=== PATIENT | female | born 1945 | race Caucasian/White ===

== ENCOUNTER 2018-11-08 06:58 | Day surgery (SDC) | payer MEDICARE, MEDICAID ==
[2018-11-08] VITALS (8 sets, daily range): BP systolic 96–123; BP diastolic 55–78
[~2018-11-08] VITALS: Ht 167.6 cm; Wt 80.3 kg
[~2018-11-08 06:58] MED LIST: BENICAR40 MG ORAL; CLARITIN10 M2 ORAL; CREON DR 12,001 EACH PO; LEXAPRO10 MG ORAL; NEXIUM40 MG ORAL; PROPRANOLOL HCL10 MG ORAL; VASCEPA1 GM PO
[2018-11-08] MEDS ORDERED: LR 1000ml 1,000 ML IVLG SCH ×2 (07:00→07:07)
--- NOTE | 2018-11-08 07:12 | Anethesia Preoperative Eval ---
Anesthesia Pre-op PMH/ROS General Date of Evaluation: Nov 08, 2018 Time of Evaluation: 07:08 Anesthesiologist: bee ASA Score: ASA 3 Mallampati Score Class I : Soft palate, uvula, fauces, pillars visible Class II: Soft palate, uvula, fauces visible Class III: Soft palate, base of uvula visible Class IV: Only hard plate visible Mallampati Classification: Class II Surgeon: jarrell Diagnosis: abdominal pain, gerd Surgical Procedure: egd/colonoscopy Anesthesia History: none Social History: smoking - nonsmoker Family History: no anesthesia problems Allergies: Coded Allergies: IBUPROFEN (Verified Allergy, Severe, rashes, redness, sneezing, 11/08/18) Medications: see eMAR Patient NPO?: Yes Past Medical History Cardiovascular: Reports: HTN, other - hyperlipidemia, hypercholesterolemia Gastrointestinal/Genitourinary: Reports: GERD, other - diverticulosis, colon polyps, hemorrhoids, bladder sx, cholecystectomy Musculoskeletal/Integumentary: Reports: other - orthrosis, PSxH Narrative: bunionectomy, cholecystectomy, bladder sx Anesthesia Pre-op Phys. Exam Physician Exam Constitutional: NAD Neurologic: CN 2-12 intact Cardiovascular: RRR Respiratory: CTA Gastrointestinal: S/NT/ND Airway Exam Mallampati Score: Class II MO: limited Neck: flexible TMD: 2fb ROM: limited Anesthesia Pre-op A/P Risk Assessment & Plan Assessment: asa3 Plan: mac Status Change Before Surgery: No Pre-Antibiotics Drug: Willa Patterson MD Nov 08, 2018 07:12
[2018-11-08] MEDS ORDERED: DiphenhydrAMINE 50mg/ml Inj IVP PRN (07:15)
[2018-11-08] MEDS ORDERED: Midazolam 2mg/2ml Inj IVP PRN (07:15)
[2018-11-08] MEDS ORDERED: Atropine Inj 1mg/10ml Syr IV PRN (07:15)
[2018-11-08] MEDS ORDERED: fentaNYL 100 mcg/2 mL IV PRN (07:15)
--- NOTE | 2018-11-08 07:27 | Short Stay Surgery H&P ---
History of Present Illness History of Present Illness Chief Complaint History of colon polyp anad GERDS/abdominal pains HPI Chante Aguilera is a 73 year old female who was admitted on for Abdominal Pain /Gerd/colon polyps for screening Patient History Allergies: Coded Allergies: IBUPROFEN (Verified Allergy, Mild, 11/28/11) PAST MEDICAL HISTORY: (1) Arthritis (2) Hyperlipidemia (3) Hypertension affecting (4) Renal stone Medication History Scheduled Escitalopram Oxalate* (Lexapro*), 10 MG ORAL DAILY, (Reported) Esomeprazole Magnesium (Nexium), 40 MG ORAL DAILY, (Reported) Icosapent Ethyl (Vascepa), 1 GM PO DAILY, (Reported) Lipase/Protease/Amylase (Creon Dr 12,000 Units Capsule), 1 EACH PO DAILY, ( Reported) Loratadine (Claritin), 10 MG ORAL DAILY, (Reported) Olmesartan Medoxomil (Benicar), 40 MG ORAL DAILY, (Reported) Propranolol Hcl* (Inderal*), 10 MG ORAL DAILY, (Reported) Review of Systems Cardiovascular: Reports: no symptoms, hypertension Respiratory: Reports: no symptoms Skeletal: Reports: no symptoms Gastrointestinal: Reports: gastro esophageal reflux disease Genitourinary: Reports: no symptoms Neurologic: Reports: no symptoms Endocrine: Reports: no symptoms Hematologic: Reports: no symptoms Physical Exam Skin: normal HENT: normal Heart: normal Lungs: normal Abdomen: normal Extremities: normal Genitourinary: normal Plan Plan of Care Upper and lower GI endoscopies Preop Interventions None. Summary of Findings See the final reports Attestation Are the patient's medical conditions optimized for surgery? Attestation Response: yes Juju Berman MD Nov 08, 2018 07:27
--- NOTE | 2018-11-08 07:29 | Pre-Procedure Note/Attestation ---
Pre-Procedure Note/Attestation Complete Prior to Procedure Planned Procedure: left Procedure Narrative: Examination of the upper and the lower GI tract via endoscopy Indications for Procedure Pre-Operative Diagnosis: R/O peptic ulcer/gastritis/Canales's esophagus/colon polyps Attestation I attest that I discussed the nature of the procedure; its benefits; risks and complications; and alternatives (and the risks and benefits of such alternatives ), prior to the procedure, with the patient (or the patient's legal loss prevention representative). I attest that, if there was a reasonable possibility of needing a blood transfusion, the patient (or the patient's legal loss prevention representative) was given the [place] [facility] [employer] [facility] standardized written summary, pursuant to the [place] [place] Blood Safety Act ([place] Health and Safety Code # 1645, as amended). I attest that I re-evaluated the patient just prior to the surgery and that there has been no change in the patient's H&P, except as documented below: Juju Berman MD Nov 08, 2018 07:28
[2018-11-08] MEDS ORDERED: FLUOXETINE HCL20 MG ORAL (07:32)
[2018-11-08] MEDS ORDERED: METOPROLOL SUCC50 MG ORAL (07:32)
[2018-11-08] MEDS ORDERED: ASPIR 8181 MG ORAL (07:56)
[2018-11-08] MEDS ORDERED: LR 1000ml ONE (08:00)
[2018-11-08] MEDS ORDERED: Propofol 200mg/20ml IV ONE (08:00)
[2018-11-08] MEDS ORDERED: Lidocaine 1% MPF 10mg/ml 5ml ONE (08:00)
[2018-11-08] MEDS ORDERED: AMLODIPINE BESYL5 MG ORAL (08:06)
[2018-11-08] MEDS ORDERED: KLONOPIN0.5 MG ORAL (08:06)
[2018-11-08] MEDS ORDERED: DIOVAN320 MG ORAL (08:06)
[2018-11-08] MEDS ORDERED: DITROPAN10 MG ORAL (08:06)
[2018-11-08] MEDS ORDERED: LINZESS145 MCG PO (08:06)
--- NOTE | 2018-11-08 08:30 | Endoscopy Procedure Note ---
Endoscopy Procedure Note General Indication for Procedure: Abdominal pains/history of colon polyps for colon screenning Procedures Performed: EGD - Small hiatal hernia with mild prepyloric antritis. Biopsies obtained from gastric body ahd the prepyloric areas., colonoscopy - Mild internal hemorrhoids and diverticulosis of the left colon otherwise normal colonoscopy with no evidence of polyps. Specimen: yes Pt Tolerated Procedure Well: Yes Estimated Blood Loss: none Anesthesia Anesthesiologist: Dr. Goodwin Anesthesia: moderate sedation Medications Medication Given: see anesthesia record Inserted Devices Implant(s) used?: No Quality Quality of Bowel Preparation: Excellent Did scope reach the cecum?: Yes Was there any complications?: No GI Core Measures 50 yrs or older w/o bx or poly: Yes 10yrs. F/U not recommended: Yes 10 yrs. F/U needed: Yes 18 years or older w/prev. colo: Yes <3yrs. since last colonoscopy: No Med reason:<3 yrs.: System Reason:<3 yrs.: Last colonoscopy >= to 3yrs: Yes Juju Berman MD Nov 08, 2018 08:30
--- NOTE | 2018-11-08 08:31 | Discharge Instructions ---
Discharge Instructions Discharge Instructions Follow up with: Visit the docotor in office after 2 weeks For Congestive Heart Failure Reminder Report to your physician any weight gain of 5 pounds or more in one week. Juju Berman MD Nov 08, 2018 08:31
--- NOTE | 2018-11-08 08:52 | Immediate Post-Op Evaluation ---
Immediate Post-Op Evalulation Immediate Post-Op Evalulation Procedure: egd/colonoscopy/bx Date of Evaluation: Nov 08, 2018 Time of Evaluation: 08:49 IV Fluids: 300ml lr Blood Products: none Estimated Blood Loss: negligible Blood Pressure Systolic: 96 Blood Pressure Diastolic: 60 Pulse Rate: 72 Respiratory Rate: 18 O2 Sat by Pulse Oximetry: 98 Temperature (Fahrenheit): 97.8 Pain Score (1-10): 0 Nausea: No Vomiting: No Complications none Patient Status: awake, reacts, patent Hydration Status: adequate Drug: Willa Patterson MD Nov 08, 2018 08:52
--- NOTE | 2018-11-08 08:54 | 48 Hour Post Anesthesia Eval ---
Post Anesthesia Evaluation Procedure: egd/colonoscopy/bx Date of Evaluation: Nov 08, 2018 Time of Evaluation: 08:53 Blood Pressure Systolic: 101 0: 68 Pulse Rate: 60 Respiratory Rate: 18 Temperature (Fahrenheit): 97.8 O2 Sat by Pulse Oximetry: 99 Airway: patent Nausea: No Vomiting: No Pain Intensity: 0 Hydration Status: adequate Cardiopulmonary Status: stable Mental Status/LOC: patient returned to baseline Post-Anesthesia Complications: none Follow-up care needed: N/A Willa Goodwin MD Nov 08, 2018 08:54
--- NOTE | 2018-11-08 15:45 | Operative Note - Dictated ---
DATE OF OPERATION: 11/08/2018 SURGEON: Juju Berman M.D. PROCEDURE: Esophagogastroduodenoscopy with biopsy. PREOPERATIVE DIAGNOSIS: History of chronic gastroesophageal reflux, rule out Canales's, gastritis and gastric ulcer. POSTOPERATIVE DIAGNOSES: 1. Small hiatal hernia. 2. Minimal inflammatory process in prepyloric area consistent with antritis. Biopsy was taken from the antrum and gastric body. MEDICATION USED: Per Dr. Taylor, anesthesiologist. INSTRUMENT: GIF Olympus upper GI video endoscope. DESCRIPTION OF PROCEDURE: The patient after arriving at endoscopy unit, was told about risks and benefits of the procedure, which she accepted and signed informed consent. She was then put on the left lateral decubitus position. After adequate IV sedation, the scope was gently passed through the cricopharyngeal area, was lodged into the upper esophagus and gradually advanced towards gastroesophageal junction. The entire length of the esophagus looked normal. There was no any evidence of inflammatory process, ulceration, exudate, stricture, etc. No varices. The scope was then guided towards the GE junction, which revealed evidence of a small hiatal hernia of no great significance and there was no any evidence of Canales's mucosa. At this time, the scope was advanced into the stomach, gastric cavity was distended with insufflation of air and gradually the areas of the fundus and the body and antrum were examined. Basically, gastric body looked normal and there was no any major inflammatory process except the area of the pre-pyloric section, where there was evidence of mild edema and inflammatory process consistent with mild gastritis of the antrum in the area of the prepyloric section. This area was biopsied and also there was another biopsy taken from gastric body. A retroflexion maneuver was applied and the area of the gastroesophageal junction was examined in a closer fashion, which revealed normal findings. Finally, scope was guided into the duodenum. First and second portion of duodenum were looked at carefully and no pathology was found. Finally, the scope was pulled out and the procedure was terminated. The patient tolerated the procedure well. Juju Berman M.D. DR: RUBIO JOB#: [id number] CC:
--- NOTE | 2018-11-08 16:00 | Operative Note - Dictated ---
DATE OF OPERATION: 11/08/2018 SURGEON: Juju Berman M.D. PROCEDURE: Total colonoscopy. PREOPERATIVE DIAGNOSIS: History of colon polyps, rule out recurrence of the polyps, screening colon. POSTOPERATIVE DIAGNOSES: 1. Minimal internal hemorrhoid. 2. Mild diverticulosis of the left colon, otherwise normal total colonoscopy. MEDICATION USED: Per Dr. Taylor, anesthesiologist. INSTRUMENT: GIF Olympus video colonoscope. DESCRIPTION OF PROCEDURE: The patient after arriving at endoscopy unit, was told about risks and benefits of the procedure, which she accepted and signed informed consent. She was then put on the left lateral decubitus position. At this time, the scope was approached towards the anal area, which revealed evidence of prolapsed internal hemorrhoids of mild degree with skin tags of no great significance and there were no any bleeding. At this point, the scope was advanced into the rectum and retroflexion maneuver was applied, which revealed no other abnormal findings. After passing into normal rectum, the scope was guided into the left colon, gradually advanced towards left splenic area, which revealed evidence of mild diverticular lesions of no great significance. Subsequently, the scope was guided into the transverse colon, which looked completely normal and reached towards the hepatic flexure and guided into the right colon all the way to the base of the cecum. All these areas also remained completely within normal limits and no polyps, tumors, strictures, ulceration, inflammatory process, etc. was found. After reaching towards the base of the cecum within 7 minutes, the scope was gradually pulled out and no other abnormalities found. The colon cleanup was also excellent. The patient tolerated the procedure well and left the endoscopy room in a good condition. Juju Berman M.D. DR: RUBIO JOB#: [id number] CC:
== END 2018-11-08 09:40 | disposition home or self-care (01) ==
LOC: GAS 06:58
DX: K64.8 Other hemorrhoids (principal); K57.90 Diverticulosis of intestine, part unspecified, without perforation or abscess without bleeding; Z86.010 Personal history of colon polyps; K29.50 Unspecified chronic gastritis without bleeding; K44.9 Diaphragmatic hernia without obstruction or gangrene; E78.5 Hyperlipidemia, unspecified; I10 Essential (primary) hypertension; Z87.442 Personal history of urinary calculi; M19.90 Unspecified osteoarthritis, unspecified site; K21.9 Gastro-esophageal reflux disease without esophagitis; Z88.6 Allergy status to analgesic agent; E78.00 Pure hypercholesterolemia, unspecified; Z90.49 Acquired absence of other specified parts of digestive tract
CPT/HCPCS: 43239; 45378; J2704; 94003; 94150